=== PATIENT | female | born 1975 | race Two or more races ===

== ENCOUNTER → 2017-04-22 | Emergency (ER) | payer OTHER ==
[~2017-04-22] VITALS: Ht 167.6 cm; Wt 59.0 kg
[~2017-04-22] MED LIST: ATIVAN1 M1 PO; EXTRA-VIRT PLU1 EACH; GILTUSS TR TAB1 EACH PO; TESSALON PERLE100 M1 PO; ZITHROMAX200 MG PO; [UNRECOGNIZED DRUG - OTHER]
== END | disposition designated cancer center or children's hospital (05) ==
LOC: ER 01:55
DX: T42.4X2A Poisoning by benzodiazepines, intentional self-harm, initial encounter (principal); R41.0 Disorientation, unspecified; Y92.89 Other specified places as the place of occurrence of the external cause